=== PATIENT | male | born 1965 | race Caucasian/White ===

== ENCOUNTER 2018-12-09 06:27 | Inpatient (IN) ==
[2018-12-04 14:57] LABS: Appearance,Urine CLEAR; Bilirubin,Urine NEG (NEG); Color,Urine YELLOW; Glucose,Urine (UA) NORM (NEG); Leukocyte Esterase,Urine NEG /uL (NEG); Protein,Urine NEG (NEG); Urine Blood NEG mg/dL (<0.03); Urobilinogen,Urine NORM (NEG)
[2018-12-04 15:15] LABS: Basophils # (Auto) 0 K/mcL (0.0-0.3); Basophils % (Auto) 0.4 % (0.0-2.0); Eosinophils # (Auto) 0.1 K/mcL (0.0-0.7); Eosinophils % (Auto) 2.1 % (0.0-7.0); Granulocytes % (Auto) 55.7 % (38.0-78.0); Lymphocytes # (Auto) 1.5 K/mcL (1.5-4.8); Lymphocytes % (Auto) 31.5 % (15.5-49.0); Mean Cell Volume 90.9 fL (80.0-100.0); Mean Corpuscular HGB Conc 33.8 g/dL (31.0-36.0); Monocytes # (Auto) 0.5 K/mcL (0.1-0.9); Monocytes % (Auto) 10.3 % (1.0-12.0); Platelet Count 201 K/mcL (140-440); RBC 4.94 M/mcL (4.50-5.90)
[2018-12-04 15:20] LABS: Blood Urea Nitrogen 13 mg/dl (6-20)
[2018-12-09] MEDS ORDERED: oxyCODONE 10 MG TAB.ER.12H PO SCH (07:00)
[2018-12-09] MEDS ORDERED: ACETAMINOPHEN 500 MG TABLET PO SCH (07:00)
[2018-12-09] MEDS ORDERED: 0.9 % SODIUM CHLORIDE 9 ML, KETOROLAC 30 MG, ROPIVACAINE HCL/PF 49.5 ML, EPINEPHrine 0.... IJ SCH (07:00)
[2018-12-09] MEDS ORDERED: ceFAZolin 1 GM VIAL IV SCH (07:00)
[2018-12-09] MEDS ORDERED: PREGABALIN 75 MG CAPSULE PO SCH (07:00)
[2018-12-09] MEDS ORDERED: CELECOXIB 200 MG CAPSULE PO SCH (07:00)
[2018-12-09] MEDS ORDERED: MIDAZOLAM 5 MG/5 ML VIAL IV ONE (09:40)
[2018-12-09] MEDS ORDERED: ONDANSETRON 4 MG/2 ML VIAL IV ONE (09:40)
[2018-12-09] MEDS ORDERED: ROPIVACAINE HCL/PF 20 ML VIAL IJ ONE (09:40)
[2018-12-09] MEDS ORDERED: TRANEXAMIC ACID 1,000 MG/10 ML VIAL IV ONE (09:40)
[2018-12-09] MEDS ORDERED: PROPOFOL 200 MG/20 ML VIAL IV ONE (09:40)
[2018-12-09] MEDS ORDERED: LIDOCAINE HCL/PF 100 MG/5 ML SYRINGE IV ONE (09:40)
[2018-12-09] MEDS ORDERED: DEXAMETHASONE 10 MG/ML VIAL IV ONE (09:40)
[2018-12-09] MEDS ORDERED: GENTAMICIN SULFATE 800 MG/20 ML VIAL IR ONE (10:26)
[2018-12-09] MEDS ORDERED: diphenhydrAMINE 50 MG/ML VIAL IV PRN (10:46)
[2018-12-09] MEDS ORDERED: LACTATED RINGERS 250 ML IV PRN (10:46)
[2018-12-09] MEDS ORDERED: IPRATROPIUM/ALBUTEROL 3 ML AMPUL.NEB NEB PRN (10:46)
[2018-12-09] MEDS ORDERED: PROMETHAZINE 25 MG/ML VIAL IV PRN (10:46)
[2018-12-09] MEDS ORDERED: ONDANSETRON 4 MG/2 ML VIAL IV PRN ×2 (10:46→11:12)
[2018-12-09] MEDS ORDERED: NALOXONE HCL 0.4 MG/ML VIAL IV PRN (10:46)
[2018-12-09] MEDS ORDERED: MEPERIDINE 25 MG/ML SYRINGE IV PRN (10:46)
[2018-12-09] MEDS ORDERED: KETOROLAC 30 MG/ML VIAL IV PRN (10:46)
[2018-12-09] MEDS ORDERED: FLUMAZENIL 0.1 MG/ML ML IV PRN (10:46)
[2018-12-09] MEDS ORDERED: LACTATED RINGERS 1,000 ML IV SCH (11:00)
[2018-12-09] MEDS ORDERED: FLEETS ADULT ENEMA PR PRN (11:12)
[2018-12-09] MEDS ORDERED: BENZOCAINE/MENTHOL 1 LOZENGE PO PRN (11:12)
[2018-12-09] MEDS ORDERED: POLYETHYLENE GLYCOL 3350 17 GM PACKET PO PRN (11:12)
[2018-12-09] MEDS ORDERED: ACETAMINOPHEN 325 MG TABLET PO PRN (11:12)
[2018-12-09] MEDS ORDERED: HYDROmorphone 2 MG/ML VIAL IV PRN (11:12)
[2018-12-09] MEDS ORDERED: MAGNESIUM HYDROXIDE 30 ML ORAL.SUSP PO PRN (11:12)
[2018-12-09] MEDS ORDERED: TRANEXAMIC ACID 1,000 MG/10 ML VIAL IV SCH (11:12)
[2018-12-09] MEDS ORDERED: BISACODYL 10 MG SUPP.RECT PR PRN (11:12)
--- NOTE | 2018-12-09 11:12 | Brief Operative Note ---
Date of procedure: 12/09/18 Pre-op diagnosis: right knee djd severe Post-op diagnosis: same Procedure: right tka with zaheer rrobot Grafts/Implants: Yes Anesthesia: VINNY Surgeon: Johnny Emery Donor Relations Manager: Kirill Kerr Estimated blood loss (cc): 20 Tourniquet Time (Minutes): 54 Specimens Removed/Pathology: none sent Condition: stable Disposition: PACU
--- NOTE | 2018-12-09 11:48 | XRay Report ---
CLINICAL INFORMATION: Postsurgical follow-up TECHNIQUE: AP and lateral right knee COMPARISON: None FINDINGS: Status post right total knee arthroplasty. Femoral and tibial components are in anatomic positions. There is mild postoperative soft tissue and intra-articular gas IMPRESSION: Status post right total knee arthroplasty Interpreted and Authenticated by: Jules Vela 12/09/18
--- NOTE | 2018-12-09 11:53 | Operative Note ---
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 PROCEDURE: Right total knee arthroplasty. SURGEON: Johnny Emery MD PEDIATRIC ASSISTANT: Kirill Kerr PA-C ANESTHESIA: General LMA anesthesia. COMPLICATIONS: None. TOTAL TOURNIQUET TIME: 54 minutes. IMPLANTS PLACED: A size 7 tibial baseplate, size 7 femur with a 35 mm patellar button. DESCRIPTION OF PROCEDURE: The patient was brought to the operating room and put to sleep with general LMA anesthesia. Once asleep, the patient had the right leg sterilely prepped and draped in the usual sterile fashion. A timeout was performed confirming this was the operative site. We then registered the center of hip rotation and the two arrays above and below the knee were placed. intraarticular points were registered and intra-articular pins. We registered the medial and lateral malleoli. We then registered the robot and balanced the knee so the patella would track perfectly, both by externally rotating the tibial baseplate as well as externally rotating the femur. Once done, we then brought in the robot, made the cuts. We trialed these with a size 7 component and removed osteophytes posteriorly, both posterior medially and anterolaterally where the groove had been completely worn away. We prepared the patella and measured a total thickness of 16 mm. This was cut to 14 mm and we placed a 35 mm patellar button that covered very nicely. We irrigated thoroughly and made a small chamfer and small lateral release. The patella tracked well. We then cemented into place the above-mentioned sizes with a 10 mm poly insert with a deep dish achieving full extension, or 1 degree of flexion with equally balanced joint. We irrigated thoroughly and prepared the patella for a 35 mm patellar button. We deflated the tourniquet and any excess cement had been removed. We kept the knee at 45 degrees until all was dry. We took the knee through range of motion. Patella tracked extremely well. We then closed the mid vastus approach tightening the mid patellofemoral ligament. Once this was adequately tightened the patella tracked perfectly. A Stratafix was used to oversew the repair of the medial capsule. The skin was closed with 2-0 Vicryl and adhesive closure. The patient tolerated this well without complication. RBH:rhett Oro: 12/09/2018 11:19:06 Job ID: [id number] Doc ID: [id number] Johnny Emery MD
[2018-12-09] MEDS: fentaNYL 100 MCG/2 ML VIAL IV PRN ×2 (12:04→12:07)
[2018-12-09] MEDS: KETOROLAC 15 MG/ML VIAL IV SCH ×2 (12:42→17:50)
[2018-12-09] MEDS: 0.45 % SODIUM CHLORIDE 1,000 ML IV SCH ×3 (12:43→22:25)
[2018-12-09] MEDS: 0.9 % SODIUM CHLORIDE 10 ML SYRINGE IV SCH ×2 (15:10→22:26)
[2018-12-09] MEDS: oxyCODONE/APAP 5/325MG TABLET PO PRN ×2 (16:30→21:09)
[2018-12-09] MEDS: ceFAZolin 1 GM VIAL IV SCH (17:50)
[2018-12-09] MEDS ORDERED: SENNOSIDES 1 TABLET PO SCH (21:00)
[2018-12-09] MEDS ORDERED: TEMAZEPAM 15 MG CAPSULE PO PRN (21:00)
[2018-12-09] MEDS: DOCUSATE SODIUM 100 MG CAPSULE PO SCH (21:09)
[2018-12-09] MEDS: ASPIRIN 325 MG ENTERIC COATED TABLET PO SCH (21:09)
[2018-12-10] MEDS: KETOROLAC 15 MG/ML VIAL IV SCH ×3 (00:39→12:10)
[2018-12-10] MEDS: ceFAZolin 1 GM VIAL IV SCH (00:39)
[2018-12-10] MEDS: oxyCODONE/APAP 5/325MG TABLET PO PRN ×3 (00:46→12:10)
[2018-12-10] MEDS: 0.45 % SODIUM CHLORIDE 1,000 ML IV SCH ×2 (05:00→07:32)
[2018-12-10] MEDS: 0.9 % SODIUM CHLORIDE 10 ML SYRINGE IV SCH (06:00)
[2018-12-10] MEDS ORDERED: OMEPRAZOLE 20 MG CAPSULE PO SCH (07:30)
--- NOTE | 2018-12-10 08:02 | Orthopedic Progress Note ---
Subjective Patient information: Note initiated : 12/10/18 at 8:01 am Service Date, if different from initiated Date: [] Patient: Reece Mota 52 y/o M admitted on 12/09/18 for Right Robotic Total Knee Arthroplasty. Chief Complaint: eatign well and walking well in no acute distress] Objective Vital signs: Vital Signs Temp Pulse Pulse Resp BP Pulse Ox 12/10/18 04:51 97.7 F 89 18 118/74 92 12/10/18 03:00 87 12/09/18 23:09 98.0 F 87 18 119/71 92 12/09/18 20:08 97.4 F 98 H 20 133/88 93 12/09/18 19:04 14 12/09/18 15:30 117/82 95 12/09/18 15:12 94 12/09/18 14:11 116/76 96 12/09/18 13:42 106/75 96 12/09/18 13:12 121/74 97 12/09/18 12:58 121/74 98 12/09/18 12:42 109/80 98 12/09/18 12:27 123/77 90 12/09/18 12:12 126/69 93 12/09/18 12:00 96.8 F L 76 14 131/81 98 12/09/18 11:55 97.3 F 78 16 136/70 99 12/09/18 11:40 97.3 F 62 17 118/69 99 12/09/18 11:35 62 17 114/61 99 12/09/18 11:30 62 62 17 100/46 97 12/09/18 11:25 97.3 F 72 72 17 100/43 96 12/09/18 11:12 93 Intake and Output 12/09/18 12/10/18 12/10/18 21:59 05:59 13:59 Intake Total 206 1800 Output Total 1050 2600 Balance 1010 -800 Intake: IV 1000 Sodium Chloride 0.45% 1,000 ml 1000 @ 100 mls/hr IV .Q10H [facility] Rx#: [id number] Oral 2059 800 Output: Void Amount 1050 2600 Other: Meal Dinner Percent of Meal Consumed 100% Urine Appearance Clear Clear Urine Color Straw Straw Urine Odor Normal Normal Weight 246 lb Intake & Output: Intake & Output 12/09/18 12/10/18 12/10/18 21:59 05:59 13:59 Intake Total 2059 1800 Output Total 1050 2600 Balance 1010 -800 Weight 246 lb Intake: IV 1000 Sodium Chloride 0.45% 1,000 ml 1000 @ 100 mls/hr IV .Q10H [facility] Rx#: [id number] Oral 2059 800 Output: Void Amount 1050 2600 Other: Meal Dinner Percent of Meal Consumed 100% Urine Appearance Clear Clear Urine Color Straw Straw Urine Odor Normal Normal Incision: Yes healing Incision clean and dry: Yes Dressing: Yes clean Weight bearing status: full Neurological exam IM: Yes oriented X3, Yes neurovascular intact Extremities exam IM: Yes Foot pink and warm, Yes neurovascular intact - Labs CBC & BMP: 12/10/18 06:15 12/04/18 11:36 Labs: 12/10/18 12/04/18 06:15 11:36 Hgb 15.1 Hct 36.0 L 44.9
--- NOTE | 2018-12-10 08:06 | Discharge Summary ---
Ortho Discharge - TKA - Patient Instructions Diet: Regular Diet Activity: activity as tolerated, weight bearing as tolerated Total Knee Protocol: For Total Knee: Start ROM MADI with stationary bike or rocking chair. Work on gaining full extension of knee. Posterior dislocation precautions provided. Hip abductor strengthening and gait training instructions provided. Apply Cryocuff as instructed. Dressing Care: May shower in 2 days, Aquacel Ag - leave on for 5 days Additional Instructions: CPM for home use. - Follow Up Plan Follow Up Appointments: Bakari Mercado PA-C [Physician Doubling Machine Operator] - 12/24/18 1:10 pm Disposition: Hospice - Home Prognosis: Good Rehab Potential: Good I certify that the patient requires SNF services: No Overall status at discharge: patient is progressing back to baseline - Orders For Discharge Prescriptions: oxyCODONE/APAP [Percocet 5-325 mg] 1 - 2 tab PO Q4H PRN #20 tab PRN Reason: Pain Promethazine [Phenergan] 25 mg PO Q4-6HP PRN #30 tab PRN Reason: Nausea Additional Discharge Orders: Physical Therapy at Discharge - TKA Location: None Selected CPM Discharge Order Location: None Selected Toilet Riser Discharge Order Location: None Selected Walker Location: None Selected
[2018-12-10] MEDS ORDERED: MULTIVIT,THER IRON,CA,FA & MIN 1 TABLET PO SCH (09:00)
[2018-12-10] MEDS ORDERED: GLUCOSAMINE/CHONDROITIN SULF A 1 CAP CAPSULE PO SCH (09:00)
[2018-12-10] MEDS: ASPIRIN 325 MG ENTERIC COATED TABLET PO SCH (09:55)
[2018-12-10] MEDS: DOCUSATE SODIUM 100 MG CAPSULE PO SCH (09:55)
== END 2018-12-10 15:10 | disposition home or self-care (01) | DRG 470 ==
LOC: MEDSUR 06:27
PROVIDERS: ADMIT Orthopaedic Surgery; ATTEND Orthopaedic Surgery

== ENCOUNTER 2019-04-21 04:55 | Inpatient (IN) ==
[2019-04-14 13:06] LABS: Appearance,Urine CLEAR; Bilirubin,Urine NEG (NEG); Color,Urine YELLOW; Culture Indicated,Urine NO; Glucose,Urine (UA) NEGATIVE (NEG); Ketones,Urine NEG (NEG); Leukocyte Esterase,Urine NEG /uL (NEG); Nitrate,Urine NEG (NEG); Protein,Urine NEG (NEG); Specific Gravity,Urine 1.011 (1.000-1.035); Urine Blood NEG mg/dL (<0.03); Urobilinogen,Urine NEG (NEG)
[2019-04-14 13:37] LABS: Basophils # (Auto) 0 K/mcL (0.0-0.3); Basophils % (Auto) 0.4 % (0.0-2.0); Blood Urea Nitrogen 12 mg/dl (6-20); Calcium 9.3 mg/dl (8.6-10.4); Carbon Dioxide 26 mmol/L (22-30); Chloride 102 mmol/L (96-108); Eosinophils # (Auto) 0.1 K/mcL (0.0-0.7); Glomerular Filtration Rate 86; Glucose 86 mg/dL (70-105); Granulocytes % (Auto) 56.4 % (38.0-78.0); Hematocrit 44.4 % (41.0-55.0); Hemoglobin 14.7 g/dL (13.5-16.5); Lymphocytes # (Auto) 1.3 K/mcL (1.5-4.8); Lymphocytes % (Auto) 32.1 % (15.5-49.0); Mean Cell Volume 87.8 fL (80.0-100.0); Mean Corpuscular HGB Conc 33.2 g/dL (31.0-36.0); Mean Platelet Volume 9.4 fL (7.4-10.4); Monocytes # (Auto) 0.4 K/mcL (0.1-0.9); Monocytes % (Auto) 9.1 % (1.0-12.0); Platelet Count 216 K/mcL (140-440); RBC 5.05 M/mcL (4.50-5.90); Red Cell Distribution Width 14.7 % (11.5-14.5); WBC 4.2 K/mcL (4.5-11.0)
[2019-04-14 13:42] LABS: Prothrombin Time 13.7 sec (11.9-14.5)
[2019-04-21] MEDS ORDERED: SCOPOLAMINE 1 PATCH PATCH TOPICAL PRN (05:00)
[2019-04-21] MEDS ORDERED: IPRATROPIUM/ALBUTEROL 3 ML AMPUL.NEB NEB PRN ×2 (05:00→08:21)
[2019-04-21] MEDS ORDERED: ACETAMINOPHEN 500 MG TABLET PO SCH (06:00)
[2019-04-21] MEDS ORDERED: PREGABALIN 75 MG CAPSULE PO SCH (06:00)
[2019-04-21] MEDS ORDERED: CELECOXIB 200 MG CAPSULE PO SCH (06:00)
[2019-04-21] MEDS ORDERED: 0.9 % SODIUM CHLORIDE 9 ML, KETOROLAC 30 MG, ROPIVACAINE HCL/PF 49.5 ML, EPINEPHrine 0.... IJ SCH (06:00)
[2019-04-21] MEDS ORDERED: oxyCODONE 10 MG TAB.ER.12H PO SCH (06:00)
[2019-04-21] MEDS: ceFAZolin 2 GM in DEXTROSE 5% IN WATER 50 ML IV SCH ×3 (07:01→15:44)
[2019-04-21] MEDS ORDERED: GENTAMICIN SULFATE 800 MG/20 ML VIAL IR ONE (07:05)
[2019-04-21] MEDS ORDERED: ePHEDrine 50 MG/ML AMPUL IV ONE (07:33)
[2019-04-21] MEDS ORDERED: ONDANSETRON 4 MG/2 ML VIAL ONE (07:33)
[2019-04-21] MEDS ORDERED: KETAMINE 10 MG/ML ML ONE (07:33)
[2019-04-21] MEDS ORDERED: PHENYLEPHRINE 10 MG/ML VIAL ONE (07:33)
[2019-04-21] MEDS ORDERED: LIDOCAINE HCL/PF 100 MG/5 ML SYRINGE IV ONE (07:33)
[2019-04-21] MEDS ORDERED: PROPOFOL 200 MG/20 ML VIAL IV ONE (07:33)
[2019-04-21] MEDS ORDERED: MIDAZOLAM 2 MG/2 ML VIAL ONE (07:33)
[2019-04-21] MEDS ORDERED: DEXAMETHASONE 10 MG/ML VIAL ONE (07:33)
[2019-04-21] MEDS ORDERED: METHOCARBAMOL 1,000 MG/10 ML VIAL IV PRN (08:21)
[2019-04-21] MEDS ORDERED: MEPERIDINE 25 MG/ML SYRINGE IV PRN (08:21)
[2019-04-21] MEDS ORDERED: LACTATED RINGERS 250 ML IV PRN (08:21)
[2019-04-21] MEDS ORDERED: FLUMAZENIL 0.1 MG/ML ML IV PRN (08:21)
[2019-04-21] MEDS ORDERED: BENZOCAINE/MENTHOL 1 LOZENGE PO PRN ×2 (08:21→09:16)
[2019-04-21] MEDS ORDERED: ACETAMINOPHEN 1,000 MG/100 ML BOTTLE IV ONE (08:21)
[2019-04-21] MEDS ORDERED: ONDANSETRON 4 MG/2 ML VIAL IV PRN ×2 (08:21→09:16)
[2019-04-21] MEDS ORDERED: NALOXONE HCL 0.4 MG/ML VIAL IV PRN (08:21)
[2019-04-21] MEDS ORDERED: LACTATED RINGERS 1,000 ML IV SCH (08:30)
[2019-04-21] MEDS ORDERED: TEMAZEPAM 15 MG CAPSULE PO PRN (09:16)
[2019-04-21] MEDS ORDERED: ACETAMINOPHEN 325 MG TABLET PO PRN (09:16)
[2019-04-21] MEDS ORDERED: MAGNESIUM HYDROXIDE 30 ML ORAL.SUSP PO PRN (09:16)
[2019-04-21] MEDS ORDERED: TRANEXAMIC ACID 1,000 MG/10 ML VIAL IV ONE (09:16)
[2019-04-21] MEDS ORDERED: BISACODYL 10 MG SUPP.RECT PR PRN (09:16)
[2019-04-21] MEDS ORDERED: FLEETS ADULT ENEMA PR PRN (09:16)
[2019-04-21] MEDS ORDERED: HYDROmorphone 2 MG/ML VIAL IV PRN (09:16)
[2019-04-21] MEDS ORDERED: POLYETHYLENE GLYCOL 3350 17 GM PACKET PO PRN (09:16)
--- NOTE | 2019-04-21 09:16 | Brief Operative Note ---
Date of procedure: 04/21/19 Pre-op diagnosis: left knee djd Post-op diagnosis: same Procedure: left tka with zaheer robot Grafts/Implants: Yes Anesthesia: GETA Complications Description: 04/21/19 09:15 none Surgeon: Johnny Emery Rn Social Services: Efrain Lancaster Estimated blood loss (cc): 100 Tourniquet Time (Minutes): 60 Condition: stable Disposition: PACU
[2019-04-21] MEDS: fentaNYL 100 MCG/2 ML VIAL IV PRN ×2 (10:24→10:29)
--- NOTE | 2019-04-21 10:52 | Operative Note ---
DATE OF OPERATION: 04/21/2019 PREOPERATIVE DIAGNOSIS: Left knee degenerative arthritis, severe. POSTOPERATIVE DIAGNOSIS: Left knee degenerative arthritis, severe. PROCEDURE: Left total knee arthroplasty using the Hiren robot. SURGEON: Johnny Emery MD [employer] VICE PRESIDENT: Efrain Lancaster PA-C. This provider's expertise and technical skill were required throughout the case. The PA assisted with preoperative coordination, intraoperative retraction, wound closure, dressing and splint application, as well as postoperative documentation and care coordination. ESTIMATED BLOOD LOSS: About 150 mL TOURNIQUET TIME: 1 hour. IMPLANTS: Per nurse's note. DESCRIPTION OF PROCEDURE: The patient was brought to the operating room and put to sleep with general LMA anesthesia. Once asleep, the left leg was sterilely prepped and draped in the usual sterile fashion. Once this was done, we then confirmed the operative site. Preop antibiotics were given and tranexamic acid given. We made a midline incision and a mid vastus approach was performed. Once this was done, we then registered the center of hip rotation, registered medial and lateral malleoli, registered intraarticular pins, registered 30 points on the femur and tibia. Once these were done, we then balanced the knee, both at 90 degrees and 15 degrees, respectively to make the patella track better. The patella tracked so poorly that it was off to the side of the knee and only measured 16 mm in total thickness with the severity of the wear. We irrigated thoroughly and made our bony cuts and then prepared the patella. Patella was taken to 14 mm in total thickness and then resurfaced with a 39 mm patella oval to cover with a small lateral release. Once this was done, we then trialed the knee-it fit perfectly. We then implanted the implants as prescribed and cemented these into place. Excess cement was removed, 11 mm poly placed, 39 mm patellar button. The patient tolerated this well. We irrigated and closed the capsule with #1 Stratafix x2, adhesive closure and all pins and hardware were accounted for. RBH:rhett Job ID: [id number] Doc ID: [id number] Johnny Emery MD
[2019-04-21] MEDS: 0.45 % SODIUM CHLORIDE 1,000 ML IV SCH ×2 (11:43→19:36)
[2019-04-21] MEDS: KETOROLAC 15 MG/ML VIAL IV SCH ×2 (11:55→18:40)
[2019-04-21] MEDS: HYDROcodone/APAP 10/325MG TABLET PO PRN ×3 (11:58→22:14)
--- NOTE | 2019-04-21 11:59 | XRay Report ---
CLINICAL INFORMATION: Post-Op Total Knee COMPARISON: None. FINDINGS: Total knee prostheses is anatomically aligned. No osseous abnormality. Minimal soft tissue swelling seen as expected. IMPRESSION: Negative Interpreted and Authenticated by: Jlues Avalos 04/21/19
[2019-04-21] MEDS: 0.9 % SODIUM CHLORIDE 10 ML SYRINGE IV SCH ×2 (15:41→20:23)
[2019-04-21] MEDS: ceFAZolin 1 GM VIAL IV SCH ×2 (15:48→22:14)
[2019-04-21] MEDS: FERROUS SULFATE 325 MG TABLET PO SCH (18:40)
[2019-04-21] MEDS: DOCUSATE SODIUM 100 MG CAPSULE PO SCH (20:10)
[2019-04-21] MEDS: ASPIRIN 325 MG ENTERIC COATED TABLET PO SCH (20:10)
[2019-04-21] MEDS ORDERED: SENNOSIDES 1 TABLET PO SCH (21:00)
[2019-04-22] MEDS: KETOROLAC 15 MG/ML VIAL IV SCH ×2 (00:11→05:53)
[2019-04-22] MEDS: HYDROcodone/APAP 10/325MG TABLET PO PRN ×3 (00:12→07:57)
[2019-04-22] MEDS: 0.9 % SODIUM CHLORIDE 10 ML SYRINGE IV SCH (05:53)
--- NOTE | 2019-04-22 06:56 | Orthopedic Progress Note ---
Subjective Patient information: Note initiated : 04/22/19 at 6:54 am Service Date, if different from initiated Date: [] Patient: Reece Mota 53 y/o M admitted on 04/21/19 for Left Total Knee Arthroplasty [facility]. Chief Complaint: left knee pain Principal diagnosis: s/p Left TKA Interval history: Pt is a 53 yo male POD#1 following left TKA. Overall doing well this AM. His pain is managed and currently using CPM machine. Denies SOB, CP, N/V, calf tenderness. Has been ambulating with PT using the walker. Pertinent ROS: negative except per HPI. Objective Vital signs: Vital Signs Temp Pulse Resp BP BP Pulse Ox 04/22/19 06:00 96 04/22/19 03:01 97.8 F 88 14 140/78 94 04/22/19 02:00 96 04/22/19 00:02 97.7 F 101 H 14 108/64 96 04/21/19 22:18 95 04/21/19 19:01 97.9 F 97 H 12 110/67 92 04/21/19 16:00 98.2 F 101 H 18 112/74 90 04/21/19 14:00 93 04/21/19 13:33 103 H 134/87 93 04/21/19 12:50 96 H 125/86 91 04/21/19 12:20 104 H 122/85 93 04/21/19 12:12 98 04/21/19 11:50 91 H 128/88 92 04/21/19 11:35 87 129/87 93 04/21/19 11:20 90 18 138/89 91 04/21/19 11:05 87 16 140/90 91 04/21/19 10:50 97.5 F 85 18 136/89 92 04/21/19 10:34 98.0 F 89 17 135/89 96 04/21/19 10:19 92 H 16 141/88 95 04/21/19 10:04 97.3 F 97 H 19 135/93 99 04/21/19 09:59 95 H 14 144/90 98 04/21/19 09:54 88 13 132/82 100 04/21/19 09:49 97.4 F 95 H 14 142/91 100 Intake and Output 04/21/19 04/22/19 04/22/19 21:59 05:59 13:59 Intake Total 2340 300 Output Total 950 1820 Balance 1390 -1520 Intake: Oral 2340 300 Output: Void Amount 950 1820 Other: Meal Dinner Percent of Meal Consumed 100% Feeding Ability Independent Urine Appearance Clear Clear Urine Color Bright Yellow Pale Urine Odor Normal Weight 252 lb Intake & Output: Intake & Output 04/21/19 04/22/19 04/22/19 21:59 05:59 13:59 Intake Total 2340 300 Output Total 950 1820 Balance 1390 -1520 Weight 252 lb Intake: Oral 2340 300 Output: Void Amount 950 1820 Other: Meal Dinner Percent of Meal Consumed 100% Feeding Ability Independent Urine Appearance Clear Clear Urine Color Bright Yellow Pale Urine Odor Normal Incision: Yes clean and dry Dressing: Yes clean, Yes dry, Yes intact Weight bearing status: as tolerated Neurological exam IM: Yes alert, Yes oriented X3 Extremities exam IM: No calf tenderness, Yes normal capillary refill, Yes normal inspection, No Therese's sign, Yes neurovascular intact - Labs CBC & BMP: 04/22/19 04:45 04/14/19 09:05 Labs: Orthopedic Labs 04/14/19 09:05 PT 13.7 INR 1.0 APTT 32 04/22/19 04/14/19 04:45 09:05 Hgb 14.7 Hct 35.4 L 44.4 Assessment and Plan (1) S/P total knee arthroplasty Status: Acute - Narrative A/P Narrative: Pt is 52 yo male POD #1 following left TKA. -Plan for DC home today. -WBAT -ASA 325 mg for 30 days. -Pain med rx at dc. -CPM ordered. -PT as prescribed. -F/u with orthopaedics in 2 weeks for wound check.
--- NOTE | 2019-04-22 06:59 | Discharge Summary ---
Providers - Providers Patient information: Note initiated : 04/22/19 at 6:57 am Service Date, if different from initiated Date: [] Patient: Reece Mota 53 y/o M admitted on 04/21/19 for Left Total Knee Arthroplasty [facility] . Chief Complaint: left knee pain Date of admission: 04/21/19 Discharge date: 04/22/19 Hospitalization Hospital course: Pt is 53 yo male POD #1 following left TKA. Hospital course has been unremarkable. Has been ambulating with PT using the walker. Vitals remain stable. Discharge diagnosis: s/p left TKA Exam - Exam Incision healing: Yes Incision draining: No Clean and dry: Yes Weight bearing status: as tolerated Ortho Discharge - TKA - Patient Instructions Diet: Regular Diet Activity: activity as tolerated, ambulate with assistive device, weight bearing as tolerated Total Knee Protocol: For Total Knee: Start ROM MADI with stationary bike or rocking chair. Work on gaining full extension of knee. Apply Cryocuff as instructed. Dressing Care: Other (may shower with dermabond patch in place) Additional Dressing Instructions: keep dressing clean and dry. - Problem Maintenance (1) S/P total knee arthroplasty Status: Acute - Follow Up Plan Follow Up Appointments: Bakari Mercado PA-C [Physician Welt Insole Channeler] - Disposition: Home, Self-Care Prognosis: Good Rehab Potential: Good I certify that the patient requires SNF services: No Overall status at discharge: patient is progressing back to baseline Pending Studies Resuscitation Status Full Code Diet Regular Diet Start Sun 5 Lunch Hydrocodone Bitart/Acetaminophen (Golden 10/325mg) 0 tab PO Q4HP PRN PRN Reason: PAIN LEVEL 3-6 Last Admin: 04/22/19 04:08 Dose: 1 tab Documented by: Admin: 04/22/19 00:12 Dose: 1 tab Documented by: Admin: 04/21/19 22:14 Dose: 1 tab Documented by: Admin: 04/21/19 20:09 Dose: 1 tab Documented by: Admin: 04/21/19 11:58 Dose: 1 tab Documented by: FRANCISCO J Aspirin (Ecotrin) 325 mg PO BID [facility] Last Admin: 04/21/19 20:10 Dose: 325 mg Documented by: CALI Docusate Sodium (Colace) 100 mg PO BID [facility] Last Admin: 04/21/19 20:10 Dose: 100 mg Documented by: CALI Ferrous Sulfate (Ferrous Sulfate) 325 mg PO BIDCC [facility] Last Admin: 04/21/19 18:40 Dose: 325 mg Documented by: FRANCISCO J Ketorolac Tromethamine (Toradol) 15 mg IV Q6 [facility] Stop: 04/23/19 06:01 Last Admin: 04/22/19 05:53 Dose: 15 mg Documented by: Admin: 04/22/19 00:11 Dose: 15 mg Documented by: Admin: 04/21/19 18:40 Dose: 15 mg Documented by: FRANCISCO J Admin: 04/21/19 11:55 Dose: 15 mg Documented by: FRANCISCO J Senna (Senokot) 2 tab PO HS [facility] Last Admin: 04/21/19 20:09 Dose: 2 tab Documented by: CALI Sodium Chloride (Saline Flush) 10 ml IV Q8 [facility] Last Admin: 04/22/19 05:53 Dose: 10 ml Documented by: Admin: 04/21/19 20:23 Dose: 10 ml Documented by: Admin: 04/21/19 15:41 Dose: 10 ml Documented by: FRANCISCO J Shift Summary 04/22/19 02:52 Shift Summary by Robinson Frias Patient is alert and oriented times four. Right total knee surgery. stable vital signs. voiding in urinal. No nausea/vomiting. Up with assist and a walker. IV on the left forearm saline locked. complained of pain, hydrocodone was given. CPM upto 60 degrees. AV boots on. Initialized on 04/22/19 02:52 - END OF NOTE
[2019-04-22] MEDS ORDERED: OMEPRAZOLE 20 MG CAPSULE PO SCH (07:30)
[2019-04-22] MEDS: DOCUSATE SODIUM 100 MG CAPSULE PO SCH (07:57)
[2019-04-22] MEDS: FERROUS SULFATE 325 MG TABLET PO SCH (07:58)
[2019-04-22] MEDS: ASPIRIN 325 MG ENTERIC COATED TABLET PO SCH (07:58)
[2019-04-22] MEDS ORDERED: [UNRECOGNIZED DRUG - OTHER] PO SCH (09:00)
[2019-04-22] MEDS ORDERED: VITAMIN D3 5,000 UNIT CAPSULE PO SCH (09:00)
[2019-04-22] MEDS ORDERED: MULTIVIT,THER IRON,CA,FA & MIN 1 TABLET PO SCH (09:00)
== END 2019-04-22 10:10 | disposition home or self-care (01) | DRG 470 ==
LOC: MEDSUR 04:55
PROVIDERS: ADMIT Orthopaedic Surgery; ATTEND Orthopaedic Surgery